=== PATIENT | male | born 1965 | race Caucasian/White ===

== ENCOUNTER → 2018-06-01 | Outpatient (CLI) | payer OTHER, BC | LOC: BMCIMAGING 12:39 | PROVIDERS: ATTEND Family Medicine | DX: M54.2 Cervicalgia (principal) ==

== ENCOUNTER → 2018-07-16 | Outpatient (CLI) | payer BC | LOC: FCPNEURO 21:00 | PROVIDERS: ATTEND Student in an Organized Health Care Education/Training Program | DX: G47.33 Obstructive sleep apnea (adult) (pediatric) (principal) ==

== ENCOUNTER → 2018-08-20 | Outpatient (CLI) | payer BC | LOC: BMCIMAGING 13:11 | PROVIDERS: ATTEND Internal Medicine | DX: R06.02 Shortness of breath (principal) ==

== ENCOUNTER → 2018-09-16 | Outpatient (CLI) | payer OTHER | LOC: FIMAGING 14:13 | PROVIDERS: ATTEND Internal Medicine | DX: Z03.89 Encounter for observation for other suspected diseases and conditions ruled out (principal) ==

== ENCOUNTER 2018-11-10 09:11 | Observation (INO) | payer OTHER ==
--- NOTE | 2018-11-10 09:17 | EDPHY ---
H & P Stated Complaint: 4 days cp Time Seen by Provider: 11/10/18 09:17 HPI/ROS: CHIEF COMPLAINT: Chest pain HISTORY OF PRESENT ILLNESS: The patient presents the ED with a 4 day history of substernal chest discomfort. The patient reports that is been present more often than not. It is not precipitated by exertion. The patient has had a history of chest pain intermittently for the past 4-5 years. His workup today has included a CT calcium score of 0, an MRI which did demonstrate possible microvascular disease, the patient has had several negative stress echocardiograms within the past 2 years. The patient is under the care of a executive director of marketing at the [facility] who referred him to the emergency department for further workup. Patient denies any asymmetric calf pain or swelling. His chest pain is not pleuritic. He has no risk factors for PE or DVT. REVIEW OF SYSTEMS: A comprehensive 10 point review of systems is otherwise negative aside from elements mentioned in the history of present illness. Source: Patient Exam Limitations: No limitations - Personal History Current Tetanus Diphtheria and Acellular Pertussis (TDAP): Yes - Medical/Surgical History Hx Asthma: No Hx Chronic Respiratory Disease: No Hx Diabetes: No Hx Cardiac Disease: No Hx Renal Disease: No Hx Cirrhosis: No Hx Alcoholism: No Hx HIV/AIDS: No Hx Splenectomy or Spleen Trauma: No Other PMH: Nino's esophagus, microvascular angina - Family History Significant Family History: No pertinent family hx - Social History Smoking Status: Never smoked - Physical Exam Exam: General Appearance: Alert, anxious Eyes: Pupils equal and round no pallor or injection ENT, Mouth: Mucous membranes moist Respiratory: There are no retractions, lungs are clear to auscultation Cardiovascular: Regular rate and rhythm Gastrointestinal: Abdomen is soft and nontender, no masses, bowel sounds normal Neurological: 5/5 strength noted all 4 extremities Skin: Warm and dry, no rashes, specifically no evidence of shingles Musculoskeletal: Neck is supple nontender Extremities: symmetrical, full range of motion, no clinical evidence of DVT Constitutional: Initial Vital Signs Temperature (C) 36.5 C 11/10/18 09:13 Heart Rate 65 11/10/18 09:13 Respiratory Rate 18 11/10/18 09:13 Blood Pressure 145/90 H 11/10/18 09:13 O2 Sat (%) 94 11/10/18 09:13 O2 Delivery Mode Room Air Allergies/Adverse Reactions: cefuroxime [From Ceftin] Allergy (Verified 11/10/18 16:58) Rash levofloxacin [From Levaquin] Allergy (Verified 11/10/18 16:58) Other-Enter Comments Home Medications: Medication Instructions Recorded Cholecalciferol Vit D3 [Vitamin D3 2,000 units PO DAILY 11/10/18 (*)] Olopatadine HCl [Pazeo] 1 drop EACHEYE DAILY PRN 11/10/18 [place]-3 Fatty Acids [Fish Oil 1000 1,000 mg PO DAILY 11/10/18 mg (*)] amLODIPine BESYLATE [Norvasc 2.5 2.5 mg PO DAILY 11/10/18 mg (*)] amLODIPine BESYLATE [Norvasc 5 mg 5 mg PO HS 11/10/18 (*)] Medical Decision Making - Diagnostics EKG Interpretation: EKG: Complete interpretation has been separately recorded in the [facility] archive. Summary impression: Sinus rhythm, rate 57, no ischemic changes noted ED Course/Re-evaluation: The patient presents to the ED with 4 days of intermittent chest pain. The patient has had an exertional component as well as a nonexertional component. His past medical history is complicated by the fact that he carries diagnosis of microvascular coronary artery disease. This was apparently diagnosed on a cardiac MRI study. He had been on Ranexa and a number of other medications for risk stratification which he has discontinued. The patient has had several recent negative stress echoes by his report. In the emergency department the patient was treated with a GI cocktail without improvement of his symptoms. The patient also received Toradol without improvement of his symptoms. I had a lengthy discussion with the patient that I felt acute coronary syndrome was quite unlikely however the patient is quite anxious that he is experiencing cardiac chest pain. The patient has requested admission to the hospital so that he can be evaluated by the cardiology team. Consultation was made with the hospitalist service. The patient will be admitted for a rule out this evening and cardiac consultation. Differential Diagnosis: Differential diagnosis considered includes acute coronary syndrome, pericarditis , myocarditis, esophageal spasm, zoster, chest wall pain - Data Points Laboratory Results: Laboratory Results 11/10/18 09:30 11/10/18 09:30 Medications Given: Acetaminophen (Tylenol) 1,000 mg PO Q8HRS PRN PRN Reason: Pain Stop: 05/10/19 05:59 Last Admin: 11/10/18 22:13 Dose: 1,000 mg Amlodipine Besylate (Norvasc) 5 mg PO HS ARLENE Stop: 05/09/19 20:59 Last Admin: 11/10/18 21:46 Dose: Not Given Hydralazine HCl (Apresoline) 10 mg PO Q6HRS PRN PRN Reason: SBP > 160 MMHG Stop: 05/09/19 19:34 Last Admin: 11/10/18 17:00 Dose: 10 mg Sodium Chloride (Ns) 1,000 mls @ 75 mls/hr IV CONT ARLENE Stop: 11/12/18 07:49 Last Admin: 11/11/18 05:09 Dose: 1,000 mls Discontinued Medications Al Hydroxide/Mg Hydroxide (Maalox Susp) 30 ml PO ONCE ONE Stop: 11/10/18 09:26 Last Admin: 11/10/18 09:31 Dose: 30 ml Alprazolam (Xanax) 0.5 mg PO ONCE ONE Stop: 11/10/18 16:51 Last Admin: 11/10/18 17:00 Dose: 0.5 mg Hyoscyamine Sulfate (Levsin, Hyomax-Sl) 0.25 mg PO ONCE ONE Stop: 11/10/18 09:26 Last Admin: 11/10/18 09:31 Dose: 0.25 mg Ketorolac Tromethamine (Toradol) 30 mg IVP EDNOW ONE Stop: 11/10/18 10:38 Last Admin: 11/10/18 10:45 Dose: 30 mg Lidocaine (Lidocaine 2% Viscous) 15 ml PO ONCE ONE Stop: 11/10/18 09:26 Last Admin: 11/10/18 09:31 Dose: 15 ml Point of Care Test Results: Chemistry 11/10/18 09:34 POC Troponin I 0.00 ng/mL ng/mL (0.00-0.08) Departure - Departure Disposition: [facility] Acute Clinical Impression: Chest pain Condition: Good
[2018-11-10] MEDS ORDERED: MAG HYDROX/AL HYDROX/SIMETH 30 ML UDCUP PO ONE (09:25)
[2018-11-10] MEDS ORDERED: HYOSCYAMINE SULFATE 0.125 MG TAB PO ONE (09:25)
[2018-11-10] MEDS ORDERED: LIDOCAINE 2% VISCOUS 15 ML UDCUP PO ONE (09:25)
--- NOTE | 2018-11-10 09:30 | CPEKG ---
Test Reason : OPEN Blood Pressure : / mmHG Vent. Rate : 059 BPM Atrial Rate : 059 BPM P-R Int : 182 ms QRS Dur : 112 ms QT Int : 417 ms P-R-T Axes : 018 -29 030 degrees QTc Int : 414 ms Sinus rhythm Partial missing lead(s): V6 Confirmed by Mateus Ambrocio ([id number]) on 11/10/2018 9:29:31 AM Referred By: Mateus Ambrocio Confirmed By:Mateus Ambrocio
[2018-11-10 10:01] LABS: PLATELET COUNT 217 10^3/uL (150-400)
[2018-11-10] MEDS ORDERED: KETOROLAC 30 MG/1 ML SDV IVP ONE (10:37)
[2018-11-10] MEDS ORDERED: ALPRAZolam 0.25 MG TAB PO ONE (16:50)
[2018-11-10] MEDS ORDERED: ENOXAPARIN 40 MG/0.4 ML SYR SC ONE (17:02)
[2018-11-10] MEDS ORDERED: amLODIPine BESYLATE 5 MG TAB ONE (17:03)
[2018-11-10] MEDS ORDERED: ALPRAZolam 0.25 MG TAB ONE (17:03)
[2018-11-10] MEDS ORDERED: hydrALAZINE 10 MG TAB ONE (17:03)
[2018-11-10] MEDS ORDERED: ALPRAZolam 0.25 MG TAB PO PRN (17:57)
[2018-11-10] MEDS ORDERED: hydrALAZINE 10 MG TAB PO PRN (19:35)
[2018-11-10] MEDS: NS 1,000 ML IV SCH (20:42)
[2018-11-10] MEDS ORDERED: amLODIPine BESYLATE 5 MG TAB PO SCH (21:00)
[2018-11-10] MEDS: ACETAMINOPHEN 500 MG TAB PO PRN (22:13)
[2018-11-11] MEDS: NS 1,000 ML IV SCH (05:09)
[2018-11-11] MEDS: ENOXAPARIN 40 MG/0.4 ML SYR SC SCH (08:36)
[2018-11-11] MEDS ORDERED: amLODIPine BESYLATE 5 MG TAB PO SCH ×2 (09:00→21:00)
[2018-11-11] MEDS ORDERED: LORazepam 0.5 MG TAB PO ONE (09:18)
--- NOTE | 2018-11-11 12:31 | PDCARCONS ---
Cardiology Consult Reason for Consult: Chest pains Chief Complaint: chest pains Requesting Physician: Hospitalist Team History of Present Illness: Patient is an adopted 53 y/o male with history of HTN, but no noted HLP, CAD, or DM, who presents to [facility] with complaints of chest discomfort. Discomfort has been a pain. Localizes to the substernal region. No radiation to the left shoulder, neck, or jaw, has been noted with this episode. Anxiety about the symptoms has been elevated. Formal work up with cardiology in [place] in 2013 with "small vessel disease" noted. At that time, treatment with Ranexa, coreg, and statins was stated, but since that, all these therapies have been stopped. Patient was told that his cholesterol was not elevated, but given concerns about small vessels, recommendations were for statin therapy to be used. No PND or orthopnea has been noted. Some exercise has been undertaken, and with this activity, there has not been symptoms noted. 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 Divorce in past with two children, both of whom are in college at this time. Patient does take fish oil supplements, and resumed this therapy within a month of the symptoms being noted. 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 As stated above, family history is not well known. Remainder of the 12 point review of systems is unremarkable. History Information - Allergies/Home Medication List Allergies/Adverse Reactions: cefuroxime [From Ceftin] Allergy (Verified 11/10/18 16:58) Rash levofloxacin [From Levaquin] Allergy (Verified 11/10/18 16:58) Other-Enter Comments Home Medications: Cholecalciferol Vit D3 [Vitamin D3 (*)] 2,000 units PO DAILY 11/10/18 [Last Taken 11/09/18] Olopatadine HCl [Pazeo] 1 drop EACHEYE DAILY PRN 11/10/18 [Last Taken Unknown] [place]-3 Fatty Acids [Fish Oil 1000 mg (*)] 1,000 mg PO DAILY 11/10/18 [Last Taken 11/09/18] amLODIPine BESYLATE [Norvasc 2.5 mg (*)] 2.5 mg PO DAILY 11/10/18 [Last Taken ] amLODIPine BESYLATE [Norvasc 5 mg (*)] 5 mg PO HS 11/10/18 [Last Taken 11/09/18] I have personally reviewed and updated: family history, medical history, social history, surgical history Past Medical History: - Past Medical History hypertension Additional medical history: anxiety - Surgical History Reports: no pertinent surgical hx - Family History Additional family history: Uncertain given adoption - Social History Smoking Status: Never smoked Alcohol Use: None Drug Use: None Cardiac History - Cardiac History Cardiac Risk Factors: hypertension (>140/90), male Timing/Duration: Weeks Severity: severe Severity Scale: 8 Location: substernal, central, epigastric Activities at Onset: emotional stress Modifying Factors: improves with: exercise, palpation Associated Symptoms: chest pain JESSE Risk Evaluation age greater or equal to 65: no greater or equal to 3 CAD risk factors: no known CAD(stenosis greater or eqaul to 50%): no ASA use in past 7 days: no severe angina(greater or equal to 2 episodes in 24hrs): no EKG ST changes greater or equal to 0.5mm: no positive cardiac marker: no Total Score: 0 JESSE Score: 4.7% risk Physical Exam Physical Exam: Temp Pulse Resp BP Pulse Ox 36.6 C 63 20 129/95 H 97 11/11/18 12:00 11/11/18 12:00 11/11/18 12:00 11/11/18 12:00 11/11/18 12:00 Constitutional: no apparent distress, appears nourished, uncomfortable Eyes: PERRL, EOMI Ears, Nose, Mouth, Throat: moist mucous membranes, hearing normal, ears appear normal Cardiovascular: regular rate and rhythym, pulses symmetric bilaterally, No systolic murmur, No JVD, No edema Peripheral Pulses: 2+: dorsalis-pedis (R), dorsalis-pedis (L) Respiratory: no respiratory distress, no rales or rhonchi, clear to auscultation Gastrointestinal: normoactive bowel sounds Skin: warm Musculoskeletal: full muscle strength, no muscle tenderness, normal joint ROM Neurologic: AAOx3, sensation intact bilaterally, CN II-XII Intact Psychiatric: interacting appropriately, anxious Lab and Imaging 11/10/18 09:30 11/10/18 09:30 WBC 6.51 10^3/uL (3.80-9.50) 11/10/18 09:30 RBC 5.49 10^6/uL (4.40-6.38) 11/10/18 09:30 Hgb 15.8 g/dL (13.7-17.5) 11/10/18 09:30 Hct 47.6 % (40.0-51.0) 11/10/18 09:30 MCV 86.7 fL (81.5-99.8) 11/10/18 09:30 MCH 28.8 pg (27.9-34.1) 11/10/18: MCHC 33.2 g/dL (32.4-36.7) 11/10/18 09:30 RDW 13.0 % (11.5-15.2) 11/10/18:30 Plt Count 217 10^3/uL (150-400) 11/10/18: MPV 11.7 fL (8.7-11.7) 11/10/18 09:30 Neut % (Auto) 64.1 % (39.3-74.2) 11/10/18:30 Lymph % (Auto) 25.5 % (15.0-45.0) 11/10/18 09:30 [place]ully % (Auto) 8.1 % (4.5-13.0) 11/10/18:30 Eos % (Auto) 1.4 % (0.6-7.6) 11/10/18:30 Baso % (Auto) 0.6 % (0.3-1.7) 11/10/18 09: Nucleat RBC Rel Count 0.0 % (0.0-0.2) 11/10/18 09:30 Absolute Neuts (auto) 4.17 10^3/uL (1.70-6.50) 11/10/18 09:30 Absolute Lymphs (auto) 1.66 10^3/uL (1.00-3.00) 11/10/18 09:30 Absolute Monos (auto) 0.53 10^3/uL (0.30-0.80) 11/10/18 09:30 Absolute Eos (auto) 0.09 10^3/uL (0.03-0.40) 11/10/18:30 Absolute Basos (auto) 0.04 10^3/uL (0.02-0.10) 03/13/19 09:30 Absolute Nucleated RBC 0.00 10^3/uL (0-0.01) 11/10/18 09:30 Immature Gran % 0.3 % (0.0-1.1) 11/10/18 09:30 Immature Gran # 0.02 10^3/uL (0.00-0.10) 11/10/18 09:30 Sodium 138 mEq/L (135-145) 11/10/18 09:30 Potassium 4.0 mEq/L (3.5-5.2) 11/10/18 09:30 Chloride 106 mEq/L (97-110) 11/10/18 09:30 Carbon Dioxide 24 mEq/l (22-31) 11/10/18 09:30 Anion Gap 8 mEq/L (6-14) 11/10/18 09:30 BUN 15 mg/dL (7-23) 11/10/18 09:30 Creatinine 0.8 mg/dL (0.7-1.3) 11/10/18 09:30 Estimated GFR > 60 11/10/18 09:30 Glucose 96 mg/dL (70-100) 11/10/18 09:30 Calcium 9.5 mg/dL (8.5-10.4) 11/10/18 09:30 Total Bilirubin 0.9 mg/dL (0.1-1.4) 11/10/18 09:30 Conjugated Bilirubin 0.3 mg/dL (0.0-0.5) 11/10/18 09:30 Unconjugated Bilirubin 0.6 mg/dL (0.0-1.1) 11/10/18 09:30 AST 27 IU/L (17-59) 11/10/18 09:30 ALT 50 IU/L (21-72) 11/10/18 09:30 Alkaline Phosphatase 50 IU/L (38-126) 11/10/18 09:30 POC Troponin I 0.00 ng/mL (0.00-0.08) 11/10/18 09:34 Troponin I < 0.012 ng/mL (0.000-0.034) 11/11/18 06:22 Total Protein 6.5 g/dL (6.3-8.2) 11/10/18 09:30 Albumin 3.9 g/dL (3.5-5.0) 11/10/18 09:30 Lipase 84 IU/L (23-300) 11/10/18 09:30 Visualized and Interpreted EKG results: Yes EKG Interpretation: Positive for: normal sinsus rhythm EKG additional interpertation: first degree AVB Telemetry: Normal sinus rhythm A/P Assessment: Patient is a 53 y/o male with history of anxiety and HTN with diagnosis of microvascular coronary arteries in the past (with medical treatments rendered). Ongoing complaints of chest pains for the past several weeks. Patient's anxiety about the symptoms is elevated. Several stress echocardiograms in the past (all of which were reportedly normal). MSCT without CAD noted (per patient ). Possible CTA in the past, but this report was not made available today. GI work up with esophagitis noted, but medical therapy has not assisted with symptoms (significantly). Gall stones have also been noted. No symptoms are noted with exercise (at least the amount of exercise that is done). Plan: Several options discussed with the patient include (a) CTA (non invasive, but good detail about the patient's coronary anatomy) (b) left heart cath (risks likely outweigh the benefits of this invasive procedure, for this patient) Would discontinue fish oil use (this could contribute to some of the symptoms that the patient has noted) Annual assessment of cholesterol Further recommendations after CTA has been completed
--- NOTE | 2018-11-11 14:23 | HOSPPROG ---
Hospitalist Progress Note Assessment/Plan: 53-year-old male with past medical history of hypertension and possible coronary artery disease admitted with chest pain. Chest pain-his heart score is 1 for age. Troponins normal x3. EKG normal sinus rhythm. Cardiology consulted who reviewed the patient's chart and discussed options regarding moving forward patient. -CTA -further management depending on CTA -monitor on telemetry Hypertension-takes 7.5 mg of Norvasc daily. Continue Anxiety-patient seems to have fairly large amount of anxiety and has been self medicating with Xanax. Will provide p.r.n. Ativan while here. Prophylaxis-SCDs and Lovenox Fluids-saline Electrolytes-within normal limits Nutrition-cardiac diet Cor-full Dispo-observation for chest pain rule out Subjective: No complaints Objective: Vital Signs Temp Pulse Resp BP Pulse Ox 36.6 C 63 20 129/95 H 97 11/11/18 12:00 11/11/18 12:00 11/11/18 12:00 11/11/18 12:00 11/11/18 12:00 11/10/18 11/11/18 11/12/18 05:59 05:59 05:59 Intake Total 300 Output Total 750 Balance -450 - Physical Exam Constitutional: no apparent distress, appears nourished, not in pain Eyes: PERRL, anicteric sclera, EOMI Ears, Nose, Mouth, Throat: moist mucous membranes, hearing normal, ears appear normal, no oral mucosal ulcers Cardiovascular: regular rate and rhythym, no murmur, rub, or gallop Respiratory: no respiratory distress, no rales or rhonchi, clear to auscultation Gastrointestinal: normoactive bowel sounds, soft, non-tender abdomen, no palpable masses Genitourinary: no bladder fullness, no bladder tenderness, no renal bruits Skin: no rashes or abrasions, no fluctuance, no induration Musculoskeletal: full muscle strength, no muscle tenderness, normal joint ROM Neurologic: AAOx3, sensation intact bilaterally Psychiatric: interacting appropriately, not anxious, not encephalopathic, thought process linear Lymph, Heme, Immunologic: no cervical LAD, no supraclavicular LAD ICD10 Worksheet Patient Problems: Problems Problem Status Onset Chest pain Acute
[2018-11-11] MEDS ORDERED: METOPROLOL TARTRATE 50 MG TAB ONE (14:36)
[2018-11-11] MEDS ORDERED: METOPROLOL TARTRATE 50 MG TAB PO ONE (14:45)
--- NOTE | 2018-11-11 15:32 | ASMTCMCOM ---
CM Note CM Note Notes: 11/11/2018 Case Management Note Reviewed chart. Discussed with MD and RN. Pt admitted for chest pain. Cardiology consult planned. Pt has history of HTN, possible CAD, and anxiety. There are no therapy evals ordered today. Pt has family support. PCP is Dr. Ford with [facility]. Case Management d/c poc: anticipating independent with follow up as directed. Case Management available if needs change. Date Signed: 11/11/2018 03:32 PM Electronically Signed By:Ginny Sheldon RN
[2018-11-11] MEDS ORDERED: IOPAMIDOL (ISOVUE 370) 100 ML BTL IV ONE ×2 (15:47→16:17)
[2018-11-11] MEDS ORDERED: NITROGLYCERIN 0.4 MG BTL SL ONE (16:10)
[2018-11-11] MEDS: ACETAMINOPHEN 500 MG TAB PO PRN (20:20)
[2018-11-12] MEDS: ENOXAPARIN 40 MG/0.4 ML SYR SC SCH (08:53)
--- NOTE | 2018-11-12 10:43 | PDCARPN ---
Cardiology Progress Note Chief Complaint: chest pains have been noted Assessment/Plan: Assessment: Patient is a 53 y/o male with history of HTN, and reported history of "microvascular disease" given work up in [place] with extensive cardiac MRI testing (which suggested the "microvascular" bit) who presented to [facility] ER with complaints of chest pains. Acute work up without ECG changes or elevation in cardiac biomarkers noted. Several cardiovascular studies (stress echos) have been performed in 2018 ([place]) without pathology appreciated. MSCT with score of zero (all per patient reports). Chest pains were noted yesterday while the patient was been examined. Patient admits to moderate degree of anxiety, which may contribute to the symptoms that are noted. In the past, therapy on Coreg, Diovan, and Norvasc was rendered, but many of these therapies have been discontinued (less the Norvasc, at 7.5 mg per day). Recommendations yesterday were for the patient to have CTA to assess for CAD as well as anatomic variants that could result in symptoms noted. This testing did not reveal any CAD or anatomic etiology for the symptoms noted. Plan: (1) Would drop Norvasc dose to 2.5 mg PO QHS (2) Resume therapy on Diovan HCT (160 mg/25 mg) for assistance with blood pressure control (3) Regular and routine exercise (4) Consider reassessment of gall bladder given history of "stones" per patient (5) Stress management (6) Outpatient follow up with cardiology Subjective: Patient initially feeling well this morning, but did appreciate chest pains as the conversation progressed Reviewed/Discussed With: hospitalist Objective: Vital Signs (8 Hrs) Temp Pulse Resp BP Pulse Ox 11/12/18 07:13 36.6 C 57 L 11 L 141/97 H 96 11/12/18 04:00 80 14 94 Intake/Output (24 Hrs) 11/11/18 11/12/18 11/13/18 05:59 05:59 05:59 Intake Total 300 1050 Output Total 750 1000 Balance -450 50 Intake: Oral (ml) 300 600 IV Infused (ml) 450 Ns 1,000 ml @ 75 mls/hr 450 IV CONT ARLENE Rx#: [id number] Output: Urine (ml) 750 1000 Urinal 750 1000 Other: Weight 89.4 kg Number of Voids Toilet 2 Number of Stools Urinal 1 Result Diagrams: 11/10/18 09:30 11/10/18 09:30 Cardiac Labs: Cardiac Lab Results (72 Hrs) 11/11/18 11/10/18 11/10/18 06:22 22:46 18:44 Troponin I < 0.012 < 0.012 < 0.012 Telemetry: sinus rhythm - Physical Exam Constitutional: WDWN, healthy appearing, no apparent distress Eyes: PERRL, EOMI Ears, Nose, Mouth, Throat: moist mucous membranes Cardiovascular: regular rate and rhythm, no murmurs, no rubs, no gallops, pulses symmetric bilat, No jugular vein distention Peripheral Pulses: 2+: dorsalis-pedis (R), dorsalis-pedis (L) Respiratory: clear to auscultate bilat, no crackles, no wheezes Gastrointestinal: normoactive bowel sounds Skin: no rashes, no edema Musculoskeletal: no muscular tenderness Neurologic: AAOx3, CN II-XII grossly intact Psychiatric: cooperative, interactive, following commands ICD10 Worksheet Patient Problems: Problems Problem Status Onset Chest pain Acute
[2018-11-12 11:09] VITALS: BP 141/96
--- NOTE | 2018-11-12 12:21 | ASDISCHSUM ---
Discharge Information Plan Status:Home with No Needs Medically Cleared to Leave:11/12/2018 Discharge Date:11/12/2018 CM D/C Disposition:Home, Routine, Self-Care ADT D/C Disposition:Home, Routine, Self-Care Projected Discharge Date:11/12/2018 Transportation at D/C: Discharge Delay Reason: Follow-Up Date:11/12/2018 Discharge Slot: Final Diagnosis: Placement Information Patient Contact Information Contact Name:KAREN Relationship:Father Address: City: [facility] Phone: State/Zip Code:[place] Email: Financial Information Financial Class:[employer] Primary Plan Desc:[facility] Primary Plan Number:[id number] Secondary Plan Desc: Secondary Plan Number: Assessment Information LACE LACE Length of stay for Answers: 1 day current admission Acuity / Level of Answers: No Care: Did the patient have an inpatient admission? Comorbidities - select Answers: Other Notes: ac's all that apply esophagus, microvascula r angina # of Emergency department Answers: 1-2 visits in the last 6 months Score: 3 Date Signed: 11/12/2018 12:20 PM Electronically Signed By:Ginny Sheldon RN [facility] CM Progress Note CM Note CM Note Notes: 11/11/2018 Case Management Note Reviewed chart. Discussed with MD and RN. Pt admitted for chest pain. Cardiology consult planned. Pt has history of HTN, possible CAD, and anxiety. There are no therapy evals ordered today. Pt has family support. PCP is Dr. Ford with [facility]. Case Management d/c poc: anticipating independent with follow up as directed. Case Management available if needs change. Date Signed: 11/11/2018 03:32 PM Electronically Signed By:Ginny Sheldon RN Case Management Discharge Plan Note Case Management Discharge Discharge Order Complete? Answers: Yes Patient to Obtain Answers: via Family Medications Discharge Comments Notes: 11/12/2018 Case Management Note Pt discharging independent with follow up as directed. Date Signed: 11/12/2018 12:20 PM Electronically Signed By:Ginny Sheldon RN Intervention Information
--- NOTE | 2018-11-12 18:11 | PDDCSUM ---
Discharge Summary Discharge Summary: Discharge diagnosis Chest pain Hypertension Anxiety Patient was admitted for ongoing chest pain. He reported that he had been on Ranexa in the past but had self stopped. CT for pulmonary embolus was negative in the emergency room. EKG and troponins were negative. Cardiology was consulted who decided to pursue a coronary CTA for further evaluation. All imaging was negative for any suggestion of coronary artery disease. Cardiology recommended restarting his home losartan and hydrochlorothiazide and decreasing his Norvasc. Ultimately they thought that his chest pain may actually represent GERD exacerbated by his fish oil tablets. He was discharged home to follow up with his primary care physician for further evaluation.
--- NOTE | 2018-11-12 18:25 | CPEKG ---
Test Reason : OPEN Blood Pressure : / mmHG Vent. Rate : 052 BPM Atrial Rate : 052 BPM P-R Int : 212 ms QRS Dur : 114 ms QT Int : 429 ms P-R-T Axes : 016 -30 013 degrees QTc Int : 399 ms Sinus rhythm Prolonged NH interval Left axis deviation Confirmed by Julio Maher ([id number]) on 11/12/2018 6:24:38 PM Referred By: Jasen Hanna Confirmed By:Julio Maher
[2018-11-13] MEDS ORDERED: VALSARTAN/HCTZ 80-12.5MG TAB PO SCH (09:00)
== END 2018-11-12 13:03 | disposition home or self-care (01) ==
LOC: F2W 14:05
PROVIDERS: ADMIT Internal Medicine; ATTEND Internal Medicine
DX: R07.9 Chest pain, unspecified (principal); I10 Essential (primary) hypertension; F41.9 Anxiety disorder, unspecified
CPT/HCPCS: 75574; 76705; 93005; G0378; 84484-ER; 96374; J1650; J1885; Q9967

== ENCOUNTER → 2019-01-28 | Outpatient (CLI) | payer OTHER | LOC: BMCIMAGING 11:06 ==